=== PATIENT | male | born 1970 | race Caucasian/White ===

== ENCOUNTER 2017-09-24 09:20 | Inpatient (IN) | payer BC ==
[2017-09-24] MEDS: TRANEXAMIC ACID 1,000 MG in DEXTROSE 5% 100 ML IVPB (06:30)
[~2017-09-24 09:20] MED LIST: BUPIVACAINE 0.5% (SDV) 30 ML, morphine SULFATE (PF) 8 MG, EPINEPHrine 0.3 MG, KETOROLAC... IRR
[2017-09-24] MEDS: DEXAMETHASONE 1 MG TAB PO (10:07)
[2017-09-24] MEDS: GABAPENTIN 300 MG CAP PO ×2 (10:07→20:12)
[2017-09-24] MEDS: traMADol 50 MG TAB PO (10:07)
[2017-09-24] MEDS ORDERED: MIDAZOLAM 1 MG/ML 2 ML INJ (10:23)
[2017-09-24] MEDS ORDERED: CEFAZOLIN 1 GM INJ (10:23)
[2017-09-24] MEDS ORDERED: ONDANSETRON 4 MG INJ (10:23)
[2017-09-24] MEDS ORDERED: DEXAMETHASONE 4 MG/ML 1 ML INJ (10:23)
[2017-09-24] MEDS ORDERED: NEOSTIGMINE 3 MG/3 ML SYRINGE (10:23)
[2017-09-24] MEDS ORDERED: ROCURONIUM 50 MG INJ (10:23)
[2017-09-24] MEDS ORDERED: FENTAnyl 50 MCG/ML VIAL ×2 (10:23→12:20)
[2017-09-24] MEDS ORDERED: PROPOFOL 20 ML (10:23)
[2017-09-24] MEDS ORDERED: GLYCOPYRROLATE 0.4 MG INJ (10:23)
[2017-09-24] MEDS ORDERED: ROPIVACAINE 0.5 % 30 ML VIAL (10:24)
[2017-09-24] MEDS: VANCOMYCIN 1 GM (PMX) 250 ML IVPB ×2 (11:37→23:16)
[2017-09-24] MEDS ORDERED: TRIAMCINOLONE ACET 40 MG/ML INJ (12:03)
[2017-09-24] MEDS ORDERED: SCOPOLAMINE 1.5 MG PATCH (12:05)
[2017-09-24] MEDS ORDERED: KETOROLAC 30 MG INJ (12:20)
[2017-09-24] MEDS: CA CHLORIDE 10% 10 ML SYRINGE (12:22)
[2017-09-24] MEDS: BUPIVACAINE 0.5%/EPI (SDV) 30 ML INJ (12:22)
[2017-09-24] MEDS: POLYMYXIN/BACITRACIN 1L IRRIG (12:46)
[2017-09-24] MEDS: THROMBIN 5000 UNIT VIAL (12:46)
[2017-09-24] MEDS ORDERED: SUGAMMADEX SODIUM 200 MG/2 ML VIAL IV (12:58)
[2017-09-24] MEDS ORDERED: OXYCODONE/ACETAMINOPHEN (5/325) TAB PO (15:00)
[2017-09-24] MEDS ORDERED: ACETAMINOPHEN 500 MG TAB PO (15:00)
[2017-09-24] MEDS ORDERED: morphine 2 MG INJ IV (15:00)
[2017-09-24] MEDS ORDERED: DIPHENHYDRAMINE 50 MG INJ IV (15:00)
[2017-09-24] MEDS ORDERED: ZOLPIDEM 5 MG TAB PO (15:00)
[2017-09-24] MEDS ORDERED: MAGNESIUM HYDROXIDE 30ML CUP PO (15:00)
[2017-09-24] MEDS ORDERED: morphine 4 MG/ML VIAL IV (15:00)
[2017-09-24] MEDS ORDERED: ONDANSETRON 4 MG INJ IV (15:00)
[2017-09-24] MEDS ORDERED: KETOROLAC 15 MG INJ IV (15:00)
[2017-09-24] MEDS: TRANEXAMIC ACID 1,000 MG in DEXTROSE 5% 100 ML IV (15:26)
[2017-09-24] MEDS: DEXAMETHASONE 2 MG TAB PO ×2 (17:50→23:15)
[2017-09-24] MEDS: SENNA/DOCUSATE NA (8.6MG/50MG) TAB PO (20:12)
[2017-09-25] MEDS: DEXAMETHASONE 2 MG TAB PO ×2 (06:42→12:02)
[2017-09-25] MEDS: ASPIRIN 81 MG TAB PO (08:59)
[2017-09-25] MEDS: SENNA/DOCUSATE NA (8.6MG/50MG) TAB PO ×2 (08:59→20:16)
[2017-09-25] MEDS: VANCOMYCIN 1 GM (PMX) 250 ML IVPB (12:03)
[2017-09-25] MEDS: GABAPENTIN 300 MG CAP PO (20:16)
[2017-09-26] MEDS: OXYCODONE/ACETAMINOPHEN (5/325) TAB PO ×2 (05:19→12:14)
[2017-09-26] MEDS: SENNA/DOCUSATE NA (8.6MG/50MG) TAB PO (08:06)
[2017-09-26] MEDS: ASPIRIN 81 MG TAB PO (08:07)
== END 2017-09-26 13:15 | disposition home or self-care (01) | DRG 502 ==
LOC: REC 09:20 → MS1 14:38
PROC: 0LM20ZZ Reattachment of Left Shoulder Tendon, Open Approach (ICD-10-PCS; principal; 2017-09-24 11:57)
PROC: 3E0U33Z Introduction of Anti-inflammatory into Joints, Percutaneous Approach (ICD-10-PCS; 2017-09-24 11:57)
PROC: 3E0U3BZ Introduction of Anesthetic Agent into Joints, Percutaneous Approach (ICD-10-PCS; 2017-09-24 11:57)
DX: S46.812A Strain of other muscles, fascia and tendons at shoulder and upper arm level, left arm, initial encounter (principal); M75.101 Unspecified rotator cuff tear or rupture of right shoulder, not specified as traumatic; M75.41 Impingement syndrome of right shoulder; M65.811 Other synovitis and tenosynovitis, right shoulder
CPT/HCPCS: 86999; 97166; 97535